=== PATIENT | male | born 1980 | race Caucasian/White ===

== ENCOUNTER 2022-07-14 10:33 | Day surgery (SDC) | payer OTHER ==
[~2022-07-14] VITALS: Ht 172.7 cm; Wt 83.0 kg
[~2022-07-14 10:33] MED LIST: OMEP10CASR PO
[2022-07-14] MEDS: NS 1,000 ML IV ONE (11:26)
[2022-07-14] MEDS ORDERED: LIDOCAINE 2% 100MG/5ML SDV (FOR ANES.) As Ordered ONE (12:05)
[2022-07-14] MEDS ORDERED: propofoL 200 MG/20 ML VIAL As Ordered ONE (12:05)
[2022-07-14 12:31] VITALS: BP 131/73
== END 2022-07-14 12:49 | disposition home or self-care (01) ==
LOC: M OPP 10:33
PROVIDERS: ATTEND Internal Medicine Gastroenterology
DX: K64.0 First degree hemorrhoids (principal); K57.30 Diverticulosis of large intestine without perforation or abscess without bleeding; K64.4 Residual hemorrhoidal skin tags; K62.89 Other specified diseases of anus and rectum

== ENCOUNTER 2022-11-30 07:03 | Emergency (ER) | payer OTHER ==
[~2022-11-30] VITALS: Ht 172.7 cm; Wt 85.1 kg
[2022-11-30 09:33] LABS: BASO # 0.1 10^3/uL (0.0-0.2); BASO % 1.2 % (0.0-1.0); EOS # 0.6 10^3/uL (0.0-0.5); EOS % 12.1 % (0.0-3.0); HEMOGLOBIN 14.8 g/dl (13.5-17.5); LYMPH # 1.4 10^3/uL (1.5-5.0); LYMPH % 28.8 % (24.0-44.0); MEAN CORPUSCULAR HEMOGLOBIN 28.5 pg (27.0-33.0); MEAN CORPUSCULAR HGB CONC 32.9 g/dl (32.0-36.5); MEAN CORPUSCULAR VOLUME 86.7 fl (80.0-96.0); MONO # 0.5 10^3/uL (0.0-0.8); MONO % 10.6 % (2.0-8.0); NEUTROPHILS # 2.3 10^3/uL (1.5-8.5); NEUTROPHILS % 47.1 % (36.0-66.0); PLATELET COUNT, AUTOMATED 198 10^3/uL (150-450); RED BLOOD COUNT 5.19 10^6/uL (4.30-6.10); WHITE BLOOD COUNT 4.9 10^3/uL (4.0-10.0)
[2022-11-30 09:42] LABS: ERYTHROCYTE SEDIMENTATION RATE 4 mm/hr (0-15)
[2022-11-30 09:52] LABS: BLOOD UREA NITROGEN 15 MG/DL (9-23); C REACTIVE PROTEIN QUANTITATIV < 0.40 MG/DL (<1.0); CARBON DIOXIDE LEVEL 28 MMOL/L (20-31); CHLORIDE LEVEL 107 MMOL/L (98-107); CREATININE FOR GFR 0.76 MG/DL (0.70-1.30); GLOMERULAR FILTRATION RATE > 60.0 (>60); GLUCOSE, FASTING 100 MG/DL (60-100); POTASSIUM SERUM 4.7 MMOL/L (3.5-5.1); SODIUM LEVEL 141 MMOL/L (136-145)
[2022-11-30] MEDS ORDERED: DOXYCYCLINE HYCLATE 100MG TABLET PO ONE (11:25)
[2022-11-30] MEDS ORDERED: LIDOCAINE 1% SDV 5ML VIAL DILUENT ONE (11:25)
[2022-11-30] MEDS ORDERED: cefTRIAXone 500MG VIAL IM ONE (11:25)
[2022-11-30] MEDS ORDERED: DOXY-444 PO (11:25)
[2022-11-30 12:35] VITALS: BP 164/79
[2022-12-01 17:13] LABS: GC DNA AMPLIFICATION NEGATIVE (NEGATIVE)
== END 2022-11-30 12:36 | disposition home or self-care (01) ==
LOC: M ED 07:03
DX: N41.0 Acute prostatitis (principal); R35.0 Frequency of micturition; Z79.83 Long term (current) use of bisphosphonates; Z79.52 Long term (current) use of systemic steroids
CPT/HCPCS: 80048; 81001; 85025; 85652; 86140; 87661; 87810; 87850; 96372; 99284; G0103; J0696

== ENCOUNTER 2023-11-07 19:34 | Emergency (ER) | payer OTHER ==
[~2023-11-07] VITALS: Ht 172.7 cm; Wt 83.8 kg
[~2023-11-07 19:34] MED LIST changes: +DOXY-444 PO
[2023-11-07 21:09] VITALS: BP 141/77; TEMP 97.7; O2SAT 97
[2023-11-07 21:51] LABS: RSV AMPLIFICATION NEGATIVE (NEGATIVE)
== END 2023-11-08 01:37 | disposition left against medical advice (07) ==
LOC: M ED 19:34
DX: Z53.21 Procedure and treatment not carried out due to patient leaving prior to being seen by health care provider (principal)

== ENCOUNTER → 2024-04-24 | Outpatient (CLI) | payer OTHER ==
[~2024-04-24] MED LIST changes: +DOXY-440 PO; -DOXY-444 PO
== END ==
LOC: M RAD 13:35
PROVIDERS: ATTEND Nurse Practitioner Family
DX: E05.90 Thyrotoxicosis, unspecified without thyrotoxic crisis or storm (principal); R20.2 Paresthesia of skin
CPT/HCPCS: 78012; A9516

== ENCOUNTER → 2024-05-17 | Outpatient (CLI) | payer OTHER ==
[2024-05-17 13:19] LABS: VITAMIN B12 LEVEL 966 PG/ML (211-911)
[2024-05-17 13:20] LABS: FOLATE > 24.0 NG/ML (>5.4); RHEUMATOID FACTOR QUANT 5.8 IU/ML (<14)
[2024-05-21 14:32] LABS: ANA PATTERN Nuclear, Centromere (NEGATIVE); ANA SCREEN, IFA POSITIVE (NEGATIVE)
[2024-05-22 17:37] LABS: VITAMIN B6,PYRIDOXAL PHOSPHATE 34.9 ng/mL (2.1-21.7)
[2024-05-23 00:52] LABS: VITAMIN E(ALPHA TOCOPHEROL) 7.7 mg/L (5.7-19.9); VITAMIN E(GAMMA TOCOPHEROL) < 1.0 mg/L (<=4.3)
== END ==
LOC: M PLALAB 09:20
PROVIDERS: ATTEND Student in an Organized Health Care Education/Training Program
DX: R20.0 Anesthesia of skin (principal)

== ENCOUNTER → 2024-05-24 | Outpatient (CLI) | payer OTHER | LOC: M RAD 10:32 | PROVIDERS: ATTEND Internal Medicine Endocrinology, Diabetes & Metabolism | DX: E05.00 Thyrotoxicosis with diffuse goiter without thyrotoxic crisis or storm (principal) | CPT/HCPCS: 79005; A9517 ==

== ENCOUNTER → 2024-07-16 | Outpatient (CLI) | payer OTHER ==
[2024-07-16 14:46] LABS: COMPLEMENT C3 120.5 MG/DL (90.0-170.0); COMPLEMENT C4 13.8 MG/DL (12-36); RHEUMATOID FACTOR QUANT 6.9 IU/ML (<14)
[2024-07-17 13:33] LABS: ANTI-U1 RNP AB <1.0 NEG AI (<1.0 NEG); SSA SJOGRENS A <1.0 NEG AI (<1.0 NEG); SSB SJOGRENS B <1.0 NEG AI (<1.0 NEG)
[2024-07-17 22:07] LABS: CARDIOLIPIN IGA ANTIBODY < 2.0 APL-U/mL (<20.0); CARDIOLIPIN IGG ANTIBODY < 2.0 GPL-U/mL (<20.0)
[2024-07-18 15:47] LABS: ANA SCREEN, IFA POSITIVE (NEGATIVE); ANA TITER 2 1:40 titer (NEGATIVE)
== END ==
LOC: M PLALAB 07:28
PROVIDERS: ATTEND Psychiatry & Neurology Neurology
DX: R20.0 Anesthesia of skin (principal)

== ENCOUNTER → 2024-07-23 | Outpatient (CLI) | payer OTHER ==
[2024-07-23 11:32] LABS: THYROID STIMULATING HORMONE 0.008 uIU/ML (0.55-4.78)
[2024-07-23 11:33] LABS: FREE T4 1.09 NG/DL (0.89-1.76)
== END ==
LOC: M PLALAB 07:52
PROVIDERS: ATTEND Internal Medicine Endocrinology, Diabetes & Metabolism
DX: E05.00 Thyrotoxicosis with diffuse goiter without thyrotoxic crisis or storm (principal)

== ENCOUNTER → 2024-08-13 | Outpatient (CLI) | payer OTHER ==
[2024-08-13 11:55] LABS: FREE T4 0.29 NG/DL (0.89-1.76)
[2024-08-13 11:56] LABS: THYROID STIMULATING HORMONE 7.152 uIU/ML (0.55-4.78)
== END ==
LOC: M PLALAB 07:56
PROVIDERS: ATTEND Nurse Practitioner Family
DX: E05.00 Thyrotoxicosis with diffuse goiter without thyrotoxic crisis or storm (principal)

== ENCOUNTER → 2024-10-08 | Outpatient (CLI) | payer OTHER ==
[2024-10-08 10:50] LABS: THYROID STIMULATING HORMONE 0.045 uIU/ML (0.55-4.78)
[2024-10-08 10:51] LABS: FREE T4 1.9 NG/DL (0.89-1.76)
== END ==
LOC: M PLALAB 08:21
PROVIDERS: ATTEND Nurse Practitioner Family
DX: E89.0 Postprocedural hypothyroidism (principal)

== ENCOUNTER → 2024-11-13 | Outpatient (CLI) | payer OTHER ==
[2024-11-13 11:22] LABS: THYROID STIMULATING HORMONE 0.048 uIU/ML (0.55-4.78)
[2024-11-13 11:24] LABS: FREE T4 1.83 NG/DL (0.89-1.76)
== END ==
LOC: M PLALAB 08:46
PROVIDERS: ATTEND Nurse Practitioner Family
DX: E89.0 Postprocedural hypothyroidism (principal)

== ENCOUNTER → 2025-02-04 | Outpatient (CLI) | payer OTHER ==
[2025-02-04 16:33] LABS: FREE T4 1.29 NG/DL (0.89-1.76); THYROID STIMULATING HORMONE 0.263 uIU/ML (0.55-4.78)
== END ==
LOC: M PLALAB 13:53
PROVIDERS: ATTEND Nurse Practitioner Family
DX: E05.00 Thyrotoxicosis with diffuse goiter without thyrotoxic crisis or storm (principal)

== ENCOUNTER → 2025-07-30 | Outpatient (CLI) | payer OTHER ==
[2025-07-30 10:47] LABS: FREE T4 1.44 NG/DL (0.89-1.76)
== END ==
LOC: M PLALAB 07:13
PROVIDERS: ATTEND Nurse Practitioner Family
DX: E89.0 Postprocedural hypothyroidism (principal)